=== PATIENT | female | born 1980 | race Caucasian/White ===

== ENCOUNTER 2017-03-25 14:22 | Emergency (ER) | payer SELFPAY ==
[~2017-03-25 14:22] MED LIST: Z.0.NO CURRENT MEDS
[2017-03-25 14:23] VITALS: BP 190/121; PULSE 114; RESP 16; TEMP 98.4; O2SAT 98
[2017-03-25 14:25] VITALS: BP 219/130
[2017-03-25 14:40] VITALS: BP 222/150; PULSE 112
--- NOTE | 2017-03-25 14:43 | PD ---
Physical Exam Time Seen by Provider: 14:41 Narrative 36-year-old female presents to emergency Department with complaint of right eye blurriness that she woke up this morning. Reports mild headache and feeling nauseated. Blood pressure is elevated in the ER. Reports history of hypertension during . Does not take blood pressure medications. Patient seen in triage. Vital signs reviewed. Patient taken to medical bed. Data Data Last Documented VS Vital Signs Date Time Temp Pulse Resp B/P (MAP) Pulse Ox O2 Delivery O2 Flow Rate FiO2 03/25/17 14:25 219/130 (159) 03/25/17 14:23 98.4 114 16 98 MDM Supervised Visit with RANDAL: Moon Llamas Mar 25, 2017 14:43
[2017-03-25] MEDS ORDERED: FLUORESCEIN SOD 1 MG STRIP EACH EYE ONE (15:00)
[2017-03-25] MEDS ORDERED: PROPARACAINE HCL 0.5% OPHT SOLN 15 ML BTL EACH EYE ONE ×2 (15:00→15:15)
--- NOTE | 2017-03-25 15:07 | PD ---
HPI Chief Complaint: Eye Problems/Injury Time Seen by Provider: 15:00 Travel History International Travel<30 days: No Contact w/Intl Traveler<30days: No Traveled to known affect area: No History of Present Illness HPI Patient is a 36-year-old female presents emergency Department with pain and visual disturbance about her right eye, she states she was driving her car and had sudden pain in his visual disturbances. She states on arrival she still having some mild discomfort to her vision is better. Denies having similar symptoms in the past. Denies any history of glaucoma. Denies any other focalized neurologic symptoms denies any weakness. Symptoms were severe started just prior to arrival and are rapidly resolving. He located the right eye associated signs and symptoms as above. [facility] Past Medical History Diminished Hearing: No Respiratory: Yes (PNEUMONIA 2000) ?: Not : 3 Para: 2 Tubal Ligation: Yes Past Surgical History Other Surgery: Yes (CYST BREAST) Social History Alcohol Use: No Tobacco Use: Yes (/ PK) Substance Use: No Allergies-Medications (Allergen,Severity, Reaction): Coded Allergies: No Known Allergies (Verified , 03/25/17) Reported Meds & Prescriptions Reported Meds & Active Scripts Active No Active Prescriptions or Reported Medications Review of Systems Except as stated in HPI: all other systems reviewed are Neg Physical Exam Narrative GENERAL: Well-developed well-nourished in no obvious distress SKIN: Focused skin assessment warm/dry. HEAD: Atraumatic. Normocephalic. EYES: Pupils equal and round. No scleral icterus. No injection or drainage. Vision is 20/20 in the left eye and 20/25 in the right eye. Normal light reflex , funduscopy normal. I checked movements intact and nontender. Jefferson-Pen is 17 the left 17 in the right. No fluorescein uptake bilaterally. ENT: No nasal bleeding or discharge. Mucous membranes pink and moist. NECK: Trachea midline. No JVD. CARDIOVASCULAR: Regular rate and rhythm. No murmur appreciated. RESPIRATORY: No accessory muscle use. Clear to auscultation. Breath sounds equal bilaterally. GASTROINTESTINAL: Abdomen soft, non-tender, nondistended. Hepatic and splenic margins not palpable. MUSCULOSKELETAL: No obvious deformities. No clubbing. No cyanosis. No edema. NEUROLOGICAL: Awake and alert. No obvious cranial nerve deficits. Motor grossly within normal limits. Normal speech. PSYCHIATRIC: Appropriate mood and affect; insight and judgment normal. Data Data Last Documented VS Vital Signs Date Time Temp Pulse Resp B/P (MAP) Pulse Ox O2 Delivery O2 Flow Rate FiO2 03/25/17 17:22 87 175/100 (125) 100 03/25/17 14:23 98.4 16 Orders Orders Proparacaine 0.5% Opth Soln (Alcaine 0.5 (03/25/17 15:00) Fluorescein Strip ([id number] A.T.) (03/25/17 15:00) Proparacaine 0.5% Opth Soln (Alcaine 0.5 (03/25/17 15:15) Ct Brain W/O Iv Contrast(Rout) (03/25/17 ) Ed Discharge Order (03/25/17 16:57) Acetaminophen (Tylenol) (03/25/17 17:30) MDM Medical Decision Making Medical Screen Exam Complete: Yes Emergency Medical Condition: Yes Differential Diagnosis Glaucoma, brain tumor, post septal cellulitis unlikely, foreign body. Narrative Course Patient roomed emergency department, CT of the head and negative, exam of the eyes is unremarkable. Vision is intact with corrective lenses. 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 Discussed return to ED criteria. Diagnosis Primary Impression: Transient visual disturbance Referrals: Yue Alvarado MD [facility] No Active Prescriptions or Reported Meds Disposition: 01 DISCHARGE HOME Condition: Stable Art Estrada MD Mar 25, 2017 15:07
--- NOTE | 2017-03-25 16:47 | RADRPT ---
EXAM DATE/TIME: 03/25/2017 16:14 [place] COMPARISON: No previous studies available for comparison. INDICATIONS : Headaches with blurry vision in right eye since today. RADIATION DOSE: 35.85 CTDIvol (mGy) MEDICAL HISTORY : None SURGICAL HISTORY : Tubal ligation. ENCOUNTER: Initial ACUITY: 1 day PAIN SCALE: 7/10 LOCATION: Right cranial TECHNIQUE: Multiple contiguous axial images were obtained of the head. Using automated exposure control and adj ustment of the mA and/or kV according to patient size, radiation dose was kept as low as reasonably a chievable to obtain optimal diagnostic quality images. DICOM format image data is available electro nically for review and comparison. FINDINGS: CEREBRUM: The ventricles are normal for age. No evidence of midline shift, mass lesion, hemorrhage or acute in farction. No extra-axial fluid collections are seen. POSTERIOR FOSSA: The cerebellum and brainstem are intact. The 4th ventricle is midline. The cerebellopontine angle i s unremarkable. EXTRACRANIAL: The visualized portion of the orbits is intact. SKULL: The calvaria is intact. No evidence of skull fracture. CONCLUSION: 1. No evidence of acute intracranial pathology. No masses are identified. Otilio Suarez MD on March 25, 2017 at 16:45 Board Certified Radiologist. This report was verified electronically.
[2017-03-25 17:22] VITALS: BP 175/100
[2017-03-25] MEDS ORDERED: ACETAMINOPHEN 325 MG TAB PO ONE (17:30)
== END 2017-03-25 17:36 | disposition home or self-care (01) ==
LOC: NEPD 14:22
DX: H53.9 Unspecified visual disturbance (principal); F17.200 Nicotine dependence, unspecified, uncomplicated
CPT/HCPCS: 70450; 99285